=== PATIENT | female | born 1985 | race Caucasian/White ===

== ENCOUNTER 2017-01-18 11:54 | Emergency (ER) | payer OTHER ==
[2017-01-18 12:00] VITALS: BP 139/86
[2017-01-18] MEDS ORDERED: Lidocaine 2% PF * 5 ML VIAL INJ ONE (12:36)
--- NOTE | 2017-01-18 14:42 | UC ---
Laceration HPI - HPI Summary HPI Summary: ONE [employer] CUT RIGHT INDEX FINGER ON CAN LID. TETANUS IN 2015. - History Of Current Complaint Chief Complaint: UCLaceration Stated Complaint: FINGER LAC Time Seen by Provider: 01/18/17 12:01 Hx Obtained From: Patient Hx Last Menstrual Period: 10/18/16 Laceration Location: Finger - RIGHT INDEX Mechanism Of Injury: Sharp Trauma Onset/Duration: Sudden Onset Severity: Mild Pain Intensity: 0 Pain Scale Used: 0-10 Numeric Related History: Dominant Hand Right - Allergies/Home Medications Allergies/Adverse Reactions: Allergies Allergy/AdvReac Type Severity Reaction Status Date / Time Hydrocodone [From Vicodin] AdvReac Mild Vomiting Verified 01/18/17 11:55 ARTIFICIAL TATA FLAVORING Allergy MOUTH Uncoded 01/18/17 11:55 SWELLING Home Medications: Home Medications NK [No Home Medications Reported] 01/18/17 [History Confirmed 01/18/17] PMH/Surg Hx/FS Hx/Imm Hx Previously Healthy: Yes - Surgical History Surgical History: Yes Surgery Procedure, Year, and Place: wisdom teeth 2006. NERVE CLUSTER BOTTOM OF FOOT- REMOVED IN OFFICE - Family History Known Family History: Negative: Blood Disorder - Social History Occupation: Works From/At Home Lives: With Family Alcohol Use: None Substance Use Type: None Smoking Status (MU): Former Smoker Have You Smoked in the Last Year: Yes - Quit at time of - Immunization History Most Recent Influenza Vaccination: declines Most Recent Tetanus Shot: 04/17/14 Most Recent Pneumonia Vaccination: none Review of Systems Constitutional: Negative Skin: Other - LACERATION RIGHT INDEX FINGER ENT: Negative Respiratory: Negative Cardiovascular: Negative Gastrointestinal: Negative Genitourinary: Negative Motor: Negative Neurovascular: Negative Musculoskeletal: Negative Neurological: Negative Psychological: Negative All Other Systems Reviewed And Are Negative: Yes Physical Exam Triage Information Reviewed: Yes Appearance: Well-Appearing, No Pain Distress, Well-Nourished Vital Signs: Initial Vital Signs Temp 98 F 01/18/17 11:57 Pulse 99 01/18/17 11:57 Resp 16 01/18/17 11:57 BP 139/86 01/18/17 11:57 Pulse Ox 100 01/18/17 11:57 Vital Signs Reviewed: Yes Eye Exam: Normal ENT Exam: Normal ENT: Positive: Normal ENT inspection Dental Exam: Normal Neck exam: Normal Neck: Positive: Supple, Nontender, No Lymphadenopathy Respiratory Exam: Normal Respiratory: Positive: Chest non-tender, Lungs clear, Normal breath sounds, No respiratory distress, No accessory muscle use Cardiovascular Exam: Normal Cardiovascular: Positive: RRR, No Murmur, Pulses Normal, Brisk Capillary Refill Abdominal Exam: Normal Musculoskeletal Exam: Normal Musculoskeletal: Positive: Strength Intact, ROM Intact Neurological Exam: Normal Psychological Exam: Normal Skin: Positive: Other - LACERATION RIGHT 2ND FINGER Laceration Repair - Laceration Repair 1 Description: Linear Laceration Size After Repair: Length (cm) - 1.5 Type Injection: Digital Anesthesia Used: 2.0% Lido Cleansing Completed Via Routine Prep: Yes Irrigation With Pressure Irrigation Device: Yes Closure Material: Sutures - 5 Closure Method: Single Layer Suture Of: Skin Suture Type: Prolene Laceration Course/Dx - Differential Dx - Laceration/Wound Differental Diagnoses: Joint Infection, Laceration Provider Diagnoses: LACERATION RIGHT SECOND FINGER WITH REPAIR Discharge - Discharge Plan Condition: Stable Disposition: HOME Patient Education Materials: Care For Your Stitches (ED), Finger Laceration (ED ) Referrals: Lexii Roy MD [Primary Care Provider] - Rogers Gonzalez MD [Medical Doctor] - If Needed Additional Instructions: PLEASE HAVE SUTURES REMOVED IN TEN DAYS
== END 2017-01-18 13:10 | disposition home or self-care (01) ==
LOC: UCEAST 11:54
DX: S61.210A Laceration without foreign body of right index finger without damage to nail, initial encounter (principal); W26.8XXA Contact with other sharp object(s), not elsewhere classified, initial encounter; Y92.9 Unspecified place or not applicable
CPT/HCPCS: 12001; 99211; G0463

== ENCOUNTER 2018-04-10 05:58 | Inpatient (IN) | payer OTHER ==
[2018-04-10] MEDS ORDERED: Penicillin G Potassium IV* 5,000,000 UNITS in NS 0.9% 100 ML* 100 ML IVPB ONE (06:20)
[2018-04-10] MEDS ORDERED: Lactated Ringers 1000 ML Bag* 1,000 ML IV ONE (06:20)
--- NOTE | 2018-04-10 06:40 | HP ---
General Information - Reason for Visit labor - General Information Maternal Age: 28 Grav: 4 Para: 2 SAB: 1 IEA: 0 Estimated Due Date: 04/19/18 Determined By: Early Ultrasound Maternal Blood Type and Rh: O Positive - Results this Serology/RPR Result: Non-Reactive Rubella Result: Immune HBsAg Result: Negative HIV Result: Negative GBS Culture Result: Positive Past Medical History Delivery History: Hx Uncomplicated Vaginal Delivery, See Records Pertinent Past Medical History: See Records Pertinent Past Surgical History: See Records Pertinent Family History: See Records - Antepartal Records Antepartal Records: Reviewed, Uncomplicated Review of Systems Constitutional: Uncomfortable CV Complaint: Yes Respiratory: Shortness of Breath: Yes Gastrointestinal: No Nausea/Vomiting Genitourinary: No Dysuria, No Bleeding, No Leaking Fluid Musculoskeletal: No Complaint Movement: Normal Exam Allergies/Adverse Reactions: Allergies MS Hydrocodone [From Vicodin] Adverse Reaction (Mild, Verified 01/18/17 11:55) Vomiting ARTIFICIAL TATA FLAVORING Allergy (Uncoded 01/18/17 11:55) MOUTH SWELLING - Measurements Height: 5 ft 7 in Weight: 177 lb Body Mass Index (BMI): 27.7 Pre- Weight: 126 lb - Exam Breast: Breast Exam Deferred CVA: No CVA Tenderness Extremities: No Edema Heart: Normal Rhythm/Heart Sounds HEENT: No Significant Findings Lungs: Clear Bilaterally Rectal: Rectal Exam Deferred Reflexes: DTR 2+ Thyroid: No Thyromegaly - Abdominal Exam Abdomen Exam: Non-Tender - Ultrasound/Biophysical Profile Ultrasound Status: Not Done Targeted Exam Findings Cervical Exam: 5cm Effacement: 100% Station: 0 Presenting Part: Vertex Membrane Status: Intact Bleeding/Discharge: None EFM Findings - External Monitor Findings Baseline Heart Rate: 140 External Monitor Findings: Accelerations Present, No Pattern of Variable or Late Decelerations, Variability Moderate Contractions: Regular, Strong - 2' Assessment/Plan - Assessment PT 32 yo active labor 38 5/7 - Obstetrical Risk Factors Obstetrical Risk Factors: GBS Positive - Plan Plan: Antibiotic Prophylaxis, Admit - Anticipate Vaginal Delivery
[2018-04-10 06:54] LABS: Hematocrit 38 % (35-47); Hemoglobin 12.9 g/dl (12.0-16.0); Mean Corpuscular HGB Conc 34 g/dl (31-36); Mean Corpuscular Hemoglobin 30 pg (27-31); Mean Corpuscular Volume 89 fL (80-97); Mean Platelet Volume 11.7 fL (7.4-10.4); Platelet Count 178 10^3/ul (150-450); Red Blood Count 4.28 10^6/ul (4.00-5.40); Red Cell Distribution Width 14 % (10.5-15); White Blood Count 11.8 10^3/ul (3.5-10.8)
[2018-04-10] MEDS ORDERED: Lactated Ringers 1000 ML Bag* 1,000 ML IV SCH ×2 (07:00→08:00)
[2018-04-10] MEDS ORDERED: Witch Hazel PAD* JAR TOPICAL PRN (07:06)
[2018-04-10] MEDS ORDERED: Dibucaine 1% 28.35 GM TUBE PR PRN (07:06)
[2018-04-10] MEDS ORDERED: Acetaminophen TAB* 325 MG PO PRN (07:06)
[2018-04-10] MEDS ORDERED: Glycerin ADULT SUPP PR PRN (07:06)
--- NOTE | 2018-04-10 07:11 | PROCNOTE ---
[facility] OB: Delivery Note - Delivery A Date of : 04/10/18 Time of : 06:55 Sex: Female Score 1 Minute: 9 Score 5 Minutes: 9 Gestational Age in Weeks and Days at Delivery: 38 Weeks and 5 Days Delivery Method: Spontaneous Vaginal Labor: Spontaneous Did Patient attempt ?: N/A, No Previous Amniotic Fluid: Clear Estimated Blood Loss: 100 Anesthesia/Analgesia: None Delivered By: Corrina Ullao - Nursery Level of Nursery: Regular/Bedside - Perineum Perineal Injury: None/Intact Perineal Repair: None - Events Delivery Events of Note: Pitocin Only After Delivery, Partial Course of Antibiotics - Additional Delivery Notes Additional Delivery Notes: /female/nuchal cord times one/no meconium placenta 3 VC/ spontaneous/intact weight pending at time of delivery
[2018-04-10 07:30] LABS: ABS Basophils 0.1 10^3/ul (0-0.2); ABS Eosinophils 0.1 10^3/ul (0-0.6); ABS Lymphocytes 3.7 10^3/ul (1.0-4.8); ABS Monocytes 1.1 10^3/ul (0-0.8); ABS Neutrophils 6.9 10^3/ul (1.5-7.7); ABS Nucleated RBC 0 10^3/ul; Eosinophil % 0.8 %; Large Platelets Present; Nucleated Red Blood Cells % 0
[2018-04-10] MEDS ORDERED: Oxytocin in LR* 20 UNITS/1,000 ML BAG IVPB SCH (08:00)
[2018-04-10] MEDS ORDERED: Simethicone TAB* 80 MG TAB.CHEW PO SCH (08:30)
[2018-04-10] MEDS: Ibuprofen TAB* 600 MG PO PRN ×3 (09:27→23:25)
[2018-04-10] MEDS ORDERED: OXYTOCIN* 10 UNITS/ML 1 ML VIAL ONE (09:29)
[2018-04-10] MEDS ORDERED: Penicillin G Potassium IV* 2,500,000 UNITS in NS 0.9% 100 ML* 100 ML IVPB SCH (10:30)
[2018-04-10] MEDS: Docusate CAP* 100 MG PO SCH ×3 (11:14→20:05)
[2018-04-11] MEDS: Ibuprofen TAB* 600 MG PO PRN (06:10)
[2018-04-11 06:32] LABS: ABS Basophils 0.1 10^3/ul (0-0.2); ABS Eosinophils 0.1 10^3/ul (0-0.6); ABS Lymphocytes 3.2 10^3/ul (1.0-4.8); ABS Neutrophils 9.2 10^3/ul (1.5-7.7); ABS Nucleated RBC 0 10^3/ul; Eosinophil % 0.6 %; Hematocrit 35 % (35-47); Hemoglobin 11.5 g/dl (12.0-16.0); Lymphocyte % 23.6 %; Mean Corpuscular HGB Conc 33 g/dl (31-36); Mean Corpuscular Hemoglobin 30 pg (27-31); Mean Corpuscular Volume 90 fL (80-97); Mean Platelet Volume 11.2 fL (7.4-10.4); Nucleated Red Blood Cells % 0.1; Platelet Count 139 10^3/ul (150-450); Red Blood Count 3.86 10^6/ul (4.00-5.40); Red Cell Distribution Width 14 % (10.5-15); White Blood Count 13.6 10^3/ul (3.5-10.8)
[2018-04-11] MEDS: Docusate CAP* 100 MG PO SCH ×3 (08:41→20:47)
[2018-04-11] MEDS ORDERED: Ferrous Gluconate TAB* 324 MG TAB PO SCH (09:00)
[2018-04-12 08:13] VITALS: BP 115/78
== END 2018-04-12 10:55 | disposition home or self-care (01) | DRG 560 ==
LOC: MCHOBOUT 05:58 → MCHOB 06:19
PROVIDERS: ADMIT Obstetrics & Gynecology; ATTEND Obstetrics & Gynecology
PROC: 10E0XZZ Delivery of Products of Conception, External Approach (ICD-10-PCS; principal; 2018-04-10)
PROC: 10907ZC Drainage of Amniotic Fluid, Therapeutic from Products of Conception, Via Natural or Artificial Opening (ICD-10-PCS; 2018-04-10)
DX: O60.23X1 Term delivery with preterm labor, third trimester, fetus 1 (principal); Z37.0 Single live birth; O69.81X0 Labor and delivery complicated by cord around neck, without compression, not applicable or unspecified; O99.824 Streptococcus B carrier state complicating childbirth; Z3A.38 38 weeks gestation of pregnancy
CPT/HCPCS: 36415; 85025; 86850; 86900; 86901; A9270-GY; J2540; J2590